=== PATIENT | female | born 1980 | race Caucasian/White ===

== ENCOUNTER 2017-07-15 00:05 | Emergency (ER) | payer OTHER ==
[2017-07-15 00:32] LABS: BASO % 0.3 % (0-6); EOS % 2.3 % (0-6); HEMATOCRIT 37.6 % (35.0-47.0); HEMOGLOBIN 13.4 gm/dl (11.6-16.0); LYMPH % 25.7 % (16-45); MEAN CELL VOLUME 87.9 fl (81-97); MEAN CORPUSCULAR HEMOGLOBIN 31.3 pg (27-33); MEAN CORPUSCULAR HGB CONC 35.6 g/dl (32-36); MEAN PLATELET VOLUME 10.4 fl (7.4-10.4); MONO % 5.7 % (0-9); PLATELET COUNT 239 K/uL (130-400); RED BLOOD COUNT 4.28 M/uL (3.80-5.40); RED CELL DISTRIBUTION WIDTH 11.8 % (11.5-14.5)
[2017-07-15] MEDS: ASPIRIN 81 MG CHEWABLE TABLET PO ONE (00:32)
[2017-07-15] MEDS: KETOROLAC 30 MG/ML VIAL IVP ONE (00:33)
[2017-07-15 00:52] LABS: ALB/GLOB RATIO 1.6 (1.1-1.8); ALBUMIN 4.4 g/dL (4.0-5.0); ALKALINE PHOSPHATASE 67 U/L (35-104); ALT/SGPT 10 U/L (<33); AST/SGOT 16 U/L (10.0-35.0); BLOOD UREA NITROGEN 13 mg/dL (6-20); CREATINE PHOSPHOKINASE 130 U/L (26-192); CREATININE 0.7 mg/dL (0.5-0.9); EST GLOMERULAR FILTRATION RATE > 60 mL/min; GLUCOSE,RANDOM 106 mg/dL (74-109); TOTAL PROTEIN 7.1 g/dL (6.6-8.7)
[2017-07-15 00:54] LABS: CKMB 1.5 ng/mL (<3.77)
--- NOTE | 2017-07-15 02:58 | Emergency Department Record ---
History of Present Illness - General Chief Complaint: Chest Pain Stated Complaint: CHEST PAIN Time Seen by Provider: 07/15/17 00:19 Source: Patient Mode of Arrival: Wheelchair Limitations: No limitations - History of Present Illness Initial Comments: pt is short of breath and has had sharp r sided cp that increases w inspiration Onset/Timin -: Hour(s) Onset: During rest Pain Location: Substernal, Right chest Severity: Mild Quality: Other Improves With: Rest Worsens With: Nothing - Related Data Previous Rx's Medication Instructions Recorded Hydrocodone/Acetaminophen [[place] 1 each PO QID #7 tablet 07/15/17 5-325 Tablet] Levofloxacin [Levaquin Tab] 500 mg PO DAILY #9 tab 07/15/17 Allergies Allergy/AdvReac Type Severity Reaction Status Date / Time Penicillins Allergy SWELLING Verified 07/15/17 00:12 (GENERAL) Travel Screening - Travel/Exposure Within Last 30 Days Have you traveled within the last 30 days?: No - Travel/Exposure Within Last Year Have you traveled outside the [place] in the last year?: No - Additonal Travel Details Have you been exposed to anyone with a communicable illness?: No - Travel Symptoms Symptom Screening: None Past Medical History - SOCIAL HISTORY Smoking Status: Current every day smoker Alcohol Use: Occasional Drug Use: None - RESPIRATORY Hx Respiratory Disorders: Yes Hx COPD: Yes - CARDIOVASCULAR Hx Cardio Disorders: No - NEURO Hx Neuro Disorders: No - GI Hx GI Disorders: No - Hx Genitourinary Disorders: No - ENDOCRINE Hx Endocrine Disorders: No - MUSCULOSKELETAL Hx Musculoskeletal Disorders: No - PSYCH Hx Psych Problems: No - HEMATOLOGY/ONCOLOGY Hx Hematology/Oncology Disorders: No Family Medical History Any Significant Family History?: No Course Vital Signs 07/15/17 07/15/17 07/15/17 00:07 01:35 02:46 Temperature 97.7 F Pulse Rate 91 H 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 ] Respiratory 20 20 20 Rate Blood Pressure 120/88 Blood Pressure 107/85 107/73 [Left Arm] Pulse Ox 98 99 98 Medical Decision Making - Lab Data Result diagrams: 07/15/17 00:25 07/15/17 00:25 Lab Results 07/15/17 07/15/17 07/15/17 Range/Units 00:25 00:25 00:25 WBC 15.0 H (4.2-12.2) K/uL RBC 4.28 (3.80-5.40) M/uL Hgb 13.4 (11.6-16.0) gm/dl Hct 37.6 (35.0-47.0) % MCV 87.9 (81-97) fl MCH 31.3 (27-33) pg MCHC 35.6 (32-36) g/dl RDW 11.8 (11.5-14.5) % Plt Count 239 (130-400) K/uL MPV 10.4 (7.4-10.4) fl Gran % 66.0 (47-80) % Lymphocytes % 25.7 (16-45) % Monocytes % 5.7 (0-9) % Eosinophils % 2.3 (0-6) % Basophils % 0.3 (0-6) % D-Dimer < 0.19 (0-0.59) mg/L FEU Sodium 137 (136-145) mmol/L Potassium 3.8 (3.4-4.5) mmol/L Chloride 98 (98-107) mmol/L Carbon Dioxide 27.0 (22-29) mmol/L Anion Gap 12.0 (7-16) BUN 13 (6-20) mg/dL Creatinine 0.7 (0.5-0.9) mg/dL Estimated GFR > 60 mL/min Random Glucose 106 (74-109) mg/dL Calcium 9.3 (8.6-10.0) mg/dL Total Bilirubin 0.20 (0.2-1.0) mg/dL AST 16 (10.0-35.0) U/L ALT 10 (<33) U/L Alkaline Phosphatase 67 (35-104) U/L Creatine Kinase 130 (26-192) U/L CK-MB (CK-2) 1.5 (<3.77) ng/mL Troponin T < 0.010 (0-0.010) ng/mL Total Protein 7.1 (6.6-8.7) g/dL Albumin 4.4 (4.0-5.0) g/dL Globulin 2.7 (1.4-4.8) gm/dL Albumin/Globulin Ratio 1.6 (1.1-1.8) Disposition Disposition: Discharge Clinical Impression: Pneumonia Qualifiers: Pneumonia type: due to unspecified organism Laterality: unspecified laterality Lung location: unspecified part of lung Qualified Code(s): J18.9 - Pneumonia, unspecified organism COPD (chronic obstructive pulmonary disease) Qualifiers: COPD type: COPD with acute lower respiratory infection Qualified Code(s): J44.0 - Chronic obstructive pulmonary disease with acute lower respiratory infection Disposition: Home, Self-Care Condition: (1) Good Instructions: Pneumonia (ED), COPD (Chronic Obstructive Pulmonary Disease) (ED) Additional Instructions: follow up with family doctor. return sooner if worse. stop smoking. Prescriptions: Hydrocodone/Acetaminophen [[place] 5-325 Tablet] 1 each PO QID #7 tablet Levofloxacin [Levaquin Tab] 500 mg PO DAILY #9 tab Forms: Patient Portal Access Quality - Quality Measures Quality Measures: N/A - Blood Pressure Screening Does Patient Have Any of the Following: No Blood Pressure Classification: Pre-Hypertensive BP Reading Systolic Measurement: 120 Diastolic Measurement: 88 Screening for High Blood Pressure: < Pre-Hypertensive BP, F/U Documented > [ G8950] Pre-Hypertensive Follow-up Interventions: Follow-up with rescreen every year.
[2017-07-15] MEDS: HYDROCODONE/APAP 5/325MG TABLET PO ONE (03:13)
[2017-07-15] MEDS: LEVOFLOXACIN 500 MG TABLET PO ONE (03:14)
--- NOTE | 2017-07-15 03:15 | Emergency Department Record ---
History of Present Illness - General Chief Complaint: Chest Pain Stated Complaint: CHEST PAIN Time Seen by Provider: 07/15/17 00:19 Source: Patient Mode of Arrival: Wheelchair Limitations: No limitations - History of Present Illness Onset/Timin -: Hour(s) Onset: During rest Pain Location: Substernal, Right chest Severity: Mild Quality: Other Improves With: Rest Worsens With: Nothing - Related Data Previous Rx's Medication Instructions Recorded Hydrocodone/Acetaminophen [[place] 1 each PO QID #7 tablet 07/15/17 5-325 Tablet] Levofloxacin [Levaquin Tab] 500 mg PO DAILY #9 tab 07/15/17 Allergies Allergy/AdvReac Type Severity Reaction Status Date / Time Penicillins Allergy SWELLING Verified 07/15/17 00:12 (GENERAL) Travel Screening - Travel/Exposure Within Last 30 Days Have you traveled within the last 30 days?: No - Travel/Exposure Within Last Year Have you traveled outside the [place] in the last year?: No - Additonal Travel Details Have you been exposed to anyone with a communicable illness?: No - Travel Symptoms Symptom Screening: None Review of Systems Reviewed: No additional complaints except as noted below Constitutional: Reports: As per HPI. Denies: Chills, Fever, Malaise, Night sweats, Weakness, Weight change Eyes: Reports: As per HPI. Denies: Eye discharge, Eye pain, Photophobia, Vision change ENT: Reports: As per HPI. Denies: Congestion, Dental pain, Ear pain, Epistaxis , Hearing loss, Throat pain Respiratory: Reports: As per HPI, Cough, Dyspnea. Denies: Hemoptysis, Stridor, Wheezes Cardiovascular: Reports: As per HPI, Dyspnea on exertion. Denies: Arrhythmia, Chest pain, Edema, Murmurs, Orthopnea, Palpitations, Paroxysmal nocturnal dyspnea, Rheumatic Fever, Syncope Endocrine: Reports: As per HPI. Denies: Fatigue, Heat or cold intolerance, Polydipsia, Polyuria Gastrointestinal: Reports: As per HPI. Denies: Abdominal pain, Constipation, Diarrhea, Hematemesis, Hematochezia, Melena, Nausea, Vomiting Genitourinary: Reports: As per HPI. Denies: Abnormal menses, Discharge, Dyspareunia, Dysuria, Frequency, Hematuria, Incontinence, Retention, Urgency Musculoskeletal: Reports: As per HPI. Denies: Arthralgia, Back pain, Gout, Joint swelling, Myalgia, Neck pain Skin: Reports: As per HPI. Denies: Bruising, Change in color, Change in hair/ nails, Lesions, Pruritus, Rash Neurological: Reports: As per HPI. Denies: Abnormal gait, Confusion, Headache, Numbness, Paresthesias, Seizure, Tingling, Tremors, Vertigo, Weakness Psychiatric: Reports: As per HPI. Denies: Anxiety, Auditory hallucinations, Depression, Homicidal thoughts, Suicidal thoughts, Visual hallucinations Hematological/Lymphatic: Reports: As per HPI. Denies: Anemia, Blood Clots, Easy bleeding, Easy bruising, Swollen glands Past Medical History - SOCIAL HISTORY Smoking Status: Current every day smoker Alcohol Use: Occasional Drug Use: None - RESPIRATORY Hx Respiratory Disorders: Yes Hx COPD: Yes - CARDIOVASCULAR Hx Cardio Disorders: No - NEURO Hx Neuro Disorders: No - GI Hx GI Disorders: No - Hx Genitourinary Disorders: No - ENDOCRINE Hx Endocrine Disorders: No - MUSCULOSKELETAL Hx Musculoskeletal Disorders: No - PSYCH Hx Psych Problems: No - HEMATOLOGY/ONCOLOGY Hx Hematology/Oncology Disorders: No Family Medical History Any Significant Family History?: No Physical Exam - General General Appearance: Alert, Oriented x3, Cooperative, Mild distress Limitations: No limitations - Head Head exam: Normal inspection - Eye Eye exam: Normal appearance, PERRL, EOMI Pupils: Normal accommodation - ENT ENT exam: Normal exam, Mucous membranes moist, Normal external ear exam, Normal orophraynx, TM's normal bilaterally Ear exam: Normal external inspection. negative: External canal tenderness Nasal Exam: Normal inspection. negative: Discharge, Sinus tenderness Mouth exam: Normal external inspection, Tongue normal Teeth exam: Normal inspection. negative: Dental caries Throat exam: Normal inspection. negative: Tonsillar erythema, Tonsillar exudate - Neck Neck exam: Normal inspection, Full ROM. negative: Tenderness - Respiratory Respiratory exam: Decreased breath sounds - Cardiovascular Cardiovascular Exam: Regular rate, Normal rhythm, Normal heart sounds - GI/Abdominal GI/Abdominal exam: Soft, Normal bowel sounds. negative: Tenderness - Rectal Rectal exam: Deferred - exam: Deferred - Extremities Extremities exam: Normal inspection, Full ROM, Normal capillary refill. negative: Tenderness - Back Back exam: Reports: Normal inspection, Full ROM. 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 ] Respiratory 20 20 20 Rate Blood Pressure 120/88 Blood Pressure 107/85 107/73 [Left Arm] Pulse Ox 98 99 98 - Reevaluation(s) Reevaluation #1: 07/15/17 03:14 pt feels better Medical Decision Making - Lab Data Result diagrams: 07/15/17 00:25 07/15/17 00:25 Lab Results 07/15/17 07/15/17 07/15/17 Range/Units 00:25 00:25 00:25 WBC 15.0 H (4.2-12.2) K/uL RBC 4.28 (3.80-5.40) M/uL Hgb 13.4 (11.6-16.0) gm/dl Hct 37.6 (35.0-47.0) % MCV 87.9 (81-97) fl MCH 31.3 (27-33) pg MCHC 35.6 (32-36) g/dl RDW 11.8 (11.5-14.5) % Plt Count 239 (130-400) K/uL MPV 10.4 (7.4-10.4) fl Gran % 66.0 (47-80) % Lymphocytes % 25.7 (16-45) % Monocytes % 5.7 (0-9) % Eosinophils % 2.3 (0-6) % Basophils % 0.3 (0-6) % D-Dimer < 0.19 (0-0.59) mg/L FEU Sodium 137 (136-145) mmol/L Potassium 3.8 (3.4-4.5) mmol/L Chloride 98 (98-107) mmol/L Carbon Dioxide 27.0 (22-29) mmol/L Anion Gap 12.0 (7-16) BUN 13 (6-20) mg/dL Creatinine 0.7 (0.5-0.9) mg/dL Estimated GFR > 60 mL/min Random Glucose 106 (74-109) mg/dL Calcium 9.3 (8.6-10.0) mg/dL Total Bilirubin 0.20 (0.2-1.0) mg/dL AST 16 (10.0-35.0) U/L ALT 10 (<33) U/L Alkaline Phosphatase 67 (35-104) U/L Creatine Kinase 130 (26-192) U/L CK-MB (CK-2) 1.5 (<3.77) ng/mL Troponin T < 0.010 (0-0.010) ng/mL Total Protein 7.1 (6.6-8.7) g/dL Albumin 4.4 (4.0-5.0) g/dL Globulin 2.7 (1.4-4.8) gm/dL Albumin/Globulin Ratio 1.6 (1.1-1.8) Disposition Clinical Impression: Pneumonia Qualifiers: Pneumonia type: due to unspecified organism Laterality: unspecified laterality Lung location: unspecified part of lung Qualified Code(s): J18.9 - Pneumonia, unspecified organism COPD (chronic obstructive pulmonary disease) Qualifiers: COPD type: COPD with acute lower respiratory infection Qualified Code(s): J44.0 - Chronic obstructive pulmonary disease with acute lower respiratory infection Disposition: Home, Self-Care Condition: (1) Good Instructions: COPD (Chronic Obstructive Pulmonary Disease) (ED), Pneumonia (ED) Additional Instructions: follow up with family doctor. return sooner if worse. stop smoking. Prescriptions: Hydrocodone/Acetaminophen [[place] 5-325 Tablet] 1 each PO QID #7 tablet Levofloxacin [Levaquin Tab] 500 mg PO DAILY #9 tab Forms: Patient Portal Access Quality - Quality Measures Quality Measures: N/A - Blood Pressure Screening Does Patient Have Any of the Following: No Blood Pressure Classification: Pre-Hypertensive BP Reading Systolic Measurement: 120 Diastolic Measurement: 88 Screening for High Blood Pressure: < Pre-Hypertensive BP, F/U Documented > [ G8950] Pre-Hypertensive Follow-up Interventions: Follow-up with rescreen every year.
--- NOTE | 2017-07-16 07:41 | RADIOLOGY REPORT ---
EXAM: CHEST, TWO VIEWS HISTORY: CHEST PAIN FOR ABOUT TWO HOURS. TECHNIQUE: PA and lateral views of the chest were obtained. Comparison: None. FINDINGS: The heart is not enlarged. The lungs appear expanded with no acute infiltrate seen. No pleural effusion or pneumothorax evident. Mild thoracic dextroscoliosis and thoracolumbar levoscoliosis. IMPRESSION: 1. MILD SCOLIOSIS. 2. NO ACUTE INFILTRATE EVIDENT. JOB NUMBER: [id number] MTDD
--- NOTE | 2017-07-16 08:06 | CT SCAN REPORT ---
EXAM: EMERGENCY CT SCAN OF THE CHEST WITHOUT CONTRAST HISTORY: CHEST PAIN, POSSIBLE PNEUMOTHORAX. TECHNIQUE: Axial CT scan of the chest was performed without IV contrast. A preliminary report was provided by [facility]. Comparison: No prior chest CT. Comparison is made with the two view chest x- ray from 07/15/17 as well. FINDINGS: Bullous disease is seen particularly in the paraseptal location in the apical region, however, no definite pneumothorax identified. There is a small patch of ground glass infiltrate in the lingula. Mild fibrosis in the apices. Some normal sized mediastinal nodes are seen, but no definite hilar or mediastinal adenopathy is seen. The heart is not enlarged. No pleural or pericardial effusion evident. There is a mild thoracic dextroscoliosis present. IMPRESSION: 1. SOME PREDOMINANTLY PARASEPTAL EMPHYSEMA. NO DEFINITE PNEUMOTHORAX SEEN. 2. MILD SCOLIOSIS. 3. SMALL PATCH OF GROUND GLASS INFILTRATE IN THE LINGULA COULD BE A SMALL PATCH OF PNEUMONITIS. JOB NUMBER: [id number] [facility]
== END 2017-07-15 03:18 | disposition home or self-care (01) ==
LOC: ER 00:05
DX: J18.9 Pneumonia, unspecified organism (principal); J44.0 Chronic obstructive pulmonary disease with (acute) lower respiratory infection; F17.210 Nicotine dependence, cigarettes, uncomplicated
CPT/HCPCS: 71046; 71250; 80053; 82550; 82553; 84484; 85025; 85379; 93005; 93010; 96374; 99284; J1885

== ENCOUNTER 2019-04-30 09:06 | Emergency (ER) | payer SELFPAY ==
[2019-04-30] MEDS ORDERED: KETOROLAC 30 MG/ML VIAL IVP ONE (09:26)
[2019-04-30] MEDS ORDERED: 0.9 % SODIUM CHLORIDE 1,000 ML BAG IV ONE (09:26)
[2019-04-30] MEDS ORDERED: ONDANSETRON HCL IV 4 MG/2 ML VIAL IV ONE (09:26)
[2019-04-30 09:35] LABS: HEMATOCRIT 43.9 % (35.0-47.0); HEMOGLOBIN 14.3 gm/dl (11.6-16.0); MEAN CELL VOLUME 89.4 fl (81-97); MEAN CORPUSCULAR HEMOGLOBIN 29.1 pg (27-33); MEAN CORPUSCULAR HGB CONC 32.6 g/dl (32-36); MEAN PLATELET VOLUME 10.9 fl (7.4-10.4); PLATELET COUNT 244 K/uL (130-400); RED BLOOD COUNT 4.91 M/uL (3.80-5.40); RED CELL DISTRIBUTION WIDTH 12.3 % (11.5-14.5); WHITE BLOOD COUNT W/O DIFF 14.3 K/uL (4.2-12.2)
--- NOTE | 2019-04-30 09:45 | Emergency Department Record ---
History of Present Illness - General Chief Complaint: Abdominal Pain Stated Complaint: ABDOMINAL PAIN Time Seen by Provider: 04/30/19 09:21 Source: Patient Mode of Arrival: Ambulatory Limitations: No limitations - History of Present Illness Initial Comments: pt had a sudden onset of severe epigastric, ruq pain 4hrs second vp hr assessment. she has n/v. she had d x1. pain is constant. she had pizza last pm along with everyone else. MD Complaint: Abdominal pain Onset/Timin -: Hour(s) Location: RUQ, RLQ Radiation: None Migration to: No migration Severity: Severe Severity scale (1-10): 10 Quality: Stabbing Improves With: Nothing Worsens With: Nothing Associated Symptoms: Nausea, Vomiting - Related Data Patient : No Previous Rx's Medication Instructions Recorded Promethazine HCl [Phenergan] 25 mg PO BID #10 tablet 04/30/19 Allergies Allergy/AdvReac Type Severity Reaction Status Date / Time Penicillins Allergy SWELLING Verified 04/30/19 09:13 (GENERAL) Travel Screening - Travel/Exposure Within Last 30 Days Have you traveled within the last 30 days?: No Review of Systems Reviewed: No additional complaints except as noted below Constitutional: Reports: As per HPI. Denies: Chills, Fever, Malaise, Night sweats, Weakness, Weight change Eyes: Reports: As per HPI. Denies: Eye discharge, Eye pain, Photophobia, Vision change ENT: Reports: As per HPI. Denies: Congestion, Dental pain, Ear pain, Epistaxis, Hearing loss, Throat pain Respiratory: Reports: As per HPI. Denies: Cough, Dyspnea, Hemoptysis, Stridor, Wheezes Cardiovascular: Reports: As per HPI. Denies: Arrhythmia, Chest pain, Dyspnea on exertion, Edema, Murmurs, Orthopnea, Palpitations, Paroxysmal nocturnal dyspnea, Rheumatic Fever, Syncope Endocrine: Reports: As per HPI. Denies: Fatigue, Heat or cold intolerance, Polydipsia, Polyuria Gastrointestinal: Reports: As per HPI, Abdominal pain, Diarrhea, Nausea, Vomiting. Denies: Constipation, Hematemesis, Hematochezia, Melena Genitourinary: Reports: As per HPI. Denies: Abnormal menses, Discharge, Dyspareunia, Dysuria, Frequency, Hematuria, Incontinence, Retention, Urgency Musculoskeletal: Reports: As per HPI. Denies: Arthralgia, Back pain, Gout, Joint swelling, Myalgia, Neck pain Skin: Reports: As per HPI. Denies: Bruising, Change in color, Change in hair/nails, Lesions, Pruritus, Rash Neurological: Reports: As per HPI. Denies: Abnormal gait, Confusion, Headache, Numbness, Paresthesias, Seizure, Tingling, Tremors, Vertigo, Weakness Psychiatric: Reports: As per HPI. Denies: Anxiety, Auditory hallucinations, Depression, Homicidal thoughts, Suicidal thoughts, Visual hallucinations Hematological/Lymphatic: Reports: As per HPI. Denies: Anemia, Blood Clots, Easy bleeding, Easy bruising, Swollen glands Past Medical History - SOCIAL HISTORY Smoking Status: Current every day smoker Alcohol Use: None Drug Use: None - RESPIRATORY Hx Respiratory Disorders: Yes Hx COPD: Yes - CARDIOVASCULAR Hx Cardio Disorders: No - NEURO Hx Neuro Disorders: No - GI Hx GI Disorders: No - Hx Genitourinary Disorders: No Comment:: endometreosis - ENDOCRINE Hx Endocrine Disorders: No - MUSCULOSKELETAL Hx Musculoskeletal Disorders: No - PSYCH Hx Psych Problems: No - HEMATOLOGY/ONCOLOGY Hx Hematology/Oncology Disorders: No Family Medical History Any Significant Family History?: No Physical Exam - General General Appearance: Alert, Oriented x3, Cooperative, Mild distress - Head Head exam: Normal inspection - Eye Eye exam: Normal appearance, PERRL, EOMI Pupils: Normal accommodation - ENT ENT exam: Normal exam, Mucous membranes moist, Normal external ear exam, Normal orophraynx Ear exam: Normal external inspection. negative: External canal tenderness Nasal Exam: Normal inspection. negative: Discharge, Sinus tenderness Mouth exam: Normal external inspection, Tongue normal Teeth exam: Normal inspection. negative: Dental caries Throat exam: Normal inspection. negative: Tonsillar erythema, Tonsillar exudate - Neck Neck exam: Normal inspection, Full ROM. negative: Tenderness - Respiratory Respiratory exam: Normal lung sounds bilaterally. negative: Respiratory distress - Cardiovascular Cardiovascular Exam: Regular rate, Normal rhythm, Normal heart sounds - GI/Abdominal GI/Abdominal exam: Soft, Normal bowel sounds, Tenderness (ruq) - Rectal Rectal exam: Deferred - exam: Deferred - Extremities Extremities exam: Normal inspection, Full ROM, Normal capillary refill. negative: Tenderness - Back Back exam: Reports: Normal inspection, Full ROM. Denies: Muscle spasm, Rash noted, Tenderness - Neurological Neurological exam: Alert, CN II-XII intact, Normal gait, Oriented X3 - Psychiatric Psychiatric exam: Normal affect, Normal mood - Skin Skin exam: Dry, Intact, Normal color, Warm Course Vital Signs 04/30/19 09:08 Temperature 98.4 F Pulse Rate 80 Respiratory 18 Rate Blood Pressure 114/77 Pulse Ox 98 - Reevaluation(s) Reevaluation #1: 04/30/19 13:26 pt feels better but lowellll has mild nausea, she was able to keep ice chips down. pain is better. Medical Decision Making - Lab Data Result diagrams: 04/30/19 09:15 04/30/19 09:15 Lab Results 04/30/19 Range/Units 09:15 WBC 14.3 H (4.2-12.2) K/uL RBC 4.91 (3.80-5.40) M/uL Hgb 14.3 (11.6-16.0) gm/dl Hct 43.9 (35.0-47.0) % MCV 89.4 (81-97) fl MCH 29.1 (27-33) pg MCHC 32.6 (32-36) g/dl RDW 12.3 (11.5-14.5) % Plt Count 244 (130-400) K/uL MPV 10.9 H (7.4-10.4) fl Eosinophils % Not Reportable Basophils % Not Reportable Absolute Neutrophils Not Reportable Disposition Disposition: Discharge Clinical Impression: Abdominal pain Qualifiers: Abdominal location: right upper quadrant Qualified Code(s): R10.11 - Right upper quadrant pain Vomiting Qualifiers: Vomiting type: unspecified Vomiting Intractability: non-intractable Nausea presence: with nausea Qualified Code(s): R11.2 - Nausea with vomiting, unspecified Disposition: Home, Self-Care Condition: (1) Good Instructions: Abdominal Pain (ED), Acute Nausea and Vomiting (ED) Additional Instructions: follow up with family doctor. return sooner if worse. if pain continues return in am for ultrasound of gallbladder, check in to emergency department again. return sooner if worse Prescriptions: Promethazine HCl [Phenergan] 25 mg PO BID #10 tablet Forms: Patient Portal Access Quality - Quality Measures Quality Measures: N/A - Blood Pressure Screening Does Patient Have Any of the Following: No Blood Pressure Classification: Normal BP Reading Systolic Measurement: 114 Diastolic Measurement: 77 Screening for High Blood Pressure: < Normal BP, F/U Not Required > [G4426]
[2019-04-30 09:49] LABS: BLOOD UREA NITROGEN 15 mg/dL (6-20); CREATININE 0.8 mg/dL (0.5-0.9); EST GLOMERULAR FILTRATION RATE > 60 mL/min
[2019-04-30 09:50] LABS: LIPASE 45 U/L (13-60); TOTAL PROTEIN 7.5 g/dL (6.6-8.7)
[2019-04-30 09:52] LABS: GLUCOSE,RANDOM 127 mg/dL (74-109)
[2019-04-30 09:54] LABS: ALT/SGPT 11 U/L (<33)
[2019-04-30 09:55] LABS: ALB/GLOB RATIO 1.6 (1.1-1.8); ALBUMIN 4.6 g/dL (4.0-5.0); ALKALINE PHOSPHATASE 69 U/L (35-104); AST/SGOT 16 U/L (10.0-35.0)
[2019-04-30] MEDS ORDERED: HYDROMORPHONE HCL 2 MG/ML VIAL IVP ONE (10:47)
[2019-04-30 11:07] LABS: URINE APPEARANCE CLEAR; URINE BILIRUBIN NEGATIVE (NEGATIVE); URINE BLOOD TRACE-I (NEGATIVE); URINE COLOR YELLOW; URINE GLUCOSE (UA) NEGATIVE (NEGATIVE); URINE KETONE NEGATIVE (NEGATIVE); URINE LEUKOCYTE ESTERASE NEGATIVE (NEGATIVE); URINE NITRITE NEGATIVE (NEGATIVE); URINE PROTEIN NEGATIVE (NEGATIVE); URINE UROBILINOGEN 0.2 E.U./dL (0.20 - 1.00)
[2019-04-30 11:14] LABS: URINE EPITHELIAL CELLS 0 - 2 (FEW); URINE RBC 0 - 2 (NONE SEEN); URINE WBC 0 - 2 (0-2/hpf)
[2019-04-30] MEDS ORDERED: PROMETHAZINE HCL 6.25 MG in 0.9 % SODIUM CHLORIDE 100ML 100 ML IVPB ONE (11:30)
--- NOTE | 2019-04-30 11:55 | CT SCAN REPORT ---
EXAMINATION: CT Abdomen and Pelvis with IV Contrast EXAM DATE: 04/30/2019 11:25 AM TECHNIQUE: CT imaging of the abdomen and pelvis was performed with intravenous contrast. Coronal and sagittal images were reconstructed. IV Contrast: The amount and type of contrast are recorded in the medical record. INDICATION: ruq abdominal pain COMPARISON: None ENCOUNTER: Not applicable CT ABDOMEN AND PELVIS FINDINGS: Lung Bases: Included extent of the lung bases are clear. Hepatobiliary: The liver has a normal size with a smooth surface. The hepatic and portal veins appear patent. No calcified gallstones. No biliary ductal dilatation Pancreas: The pancreas is normal. Spleen: The spleen is not enlarged. Adrenals: The adrenal glands are normal. Kidneys, Ureters, & Bladder: Both kidneys have a normal size and there is no hydroureteronephrosis. P artially collapsed urinary bladder without gross abnormality. Gastrointestinal: WNL. Appendix is partly seen, visualized portion within normal limits. Reproductive Organs: Suggestion of a vaginal tampon. Otherwise unremarkable Lymphatic System: There is no adenopathy within the abdomen or pelvis. Vasculature: Normal caliber abdominal aorta. Peritoneum: No free fluid, free air, or inflammation Abdominal Wall & Musculoskeletal: No suspicious bone lesions. IMPRESSION: No definite acute abnormality appreciated. Dictated by: Nuno Archuleta MD on 04/30/2019 11:46 AM. .
[2019-04-30] MEDS ORDERED: MAGNESIUM HYDROXIDE/AL HYDROX 30 ML, LIDOCAINE VISC 2% 15ML 15 ML PO ONE ×2 (12:11)
[2019-04-30] MEDS ORDERED: ONDANSETRON HCL IV 4 MG/2 ML VIAL IVP ONE (12:37)
== END 2019-04-30 13:45 | disposition home or self-care (01) ==
LOC: ER 09:06
DX: R10.11 Right upper quadrant pain (principal); R11.2 Nausea with vomiting, unspecified; J44.9 Chronic obstructive pulmonary disease, unspecified; F17.210 Nicotine dependence, cigarettes, uncomplicated
CPT/HCPCS: 74177; 80053; 81001; 83690; 85027; 96365; 96375; 96376; 99284; J1885; J2405; J2550; J7030